=== PATIENT | female | born 1945 | race Caucasian/White ===

== ENCOUNTER 2018-10-08 09:15 | Outpatient (CLI) | payer MEDICARE, OTHER ==
[2018-10-08] VITALS (21 sets, daily range): BP systolic 103–128; BP diastolic 65–91
== END 2018-10-08 23:59 | disposition home or self-care (01) ==
LOC: CARD DIAG 09:15
PROVIDERS: ATTEND Internal Medicine Cardiovascular Disease
DX: R55 Syncope and collapse (principal)
CPT/HCPCS: 93660

== ENCOUNTER 2018-11-23 16:04 | Emergency (ER) | payer MEDICARE, OTHER ==
[~2018-11-23] VITALS: Ht 167.6 cm; Wt 94.1 kg
[2018-11-23 16:07] VITALS: BP 135/87
[2018-11-23] MEDS ORDERED: ondansetron 4mg rapidly disintigrating tab PO ONE (16:20)
[2018-11-23] MEDS ORDERED: diazepam 5mg tablet PO ONE (16:20)
[2018-11-23] MEDS ORDERED: DIAZ5TAB PO (17:07)
== END 2018-11-23 17:24 | disposition home or self-care (01) ==
LOC: ER 16:04
DX: R42 Dizziness and giddiness (principal); R53.1 Weakness; I48.91 Unspecified atrial fibrillation; Z88.0 Allergy status to penicillin; Z88.2 Allergy status to sulfonamides; Z79.899 Other long term (current) drug therapy; Z98.890 Other specified postprocedural states
CPT/HCPCS: 82948; 93005; 99283

== ENCOUNTER 2022-10-09 08:41 | Day surgery (SDC) | payer OTHER ==
[~2022-10-09] VITALS: Ht 165.1 cm; Wt 103.5 kg
[2022-10-09] VITALS (16 sets, daily range): BP systolic 114–169; BP diastolic 73–104
[~2022-10-09 08:41] MED LIST: DIAZ5TAB PO
[2022-10-09] MEDS ORDERED: LORazepam 0.5 MG tablet PO ONE (09:20)
[2022-10-09] MEDS ORDERED: morphine 10mg/ml inj. IV ONE (09:20)
[2022-10-09] MEDS ORDERED: diphenhydrAMINE 25mg capsule PO ONE (09:20)
[2022-10-09] MEDS ORDERED: MIDAZolam 1mg/ml 10ml vial IV ONE (09:20)
[2022-10-09] MEDS ORDERED: amiodarone 150mg/dext, iso-os 100 ML IV ONE (09:20)
[2022-10-09] MEDS ORDERED: atropine 0.1mg/ml 10ml syringe IV ONE (09:20)
[2022-10-09] MEDS ORDERED: normal saline 1000ml 1,000 ML IV SCH (09:20)
[2022-10-09] MEDS ORDERED: CARV25TA PO (09:45)
[2022-10-09] MEDS ORDERED: IRBE1TAB33 PO (09:45)
[2022-10-09] MEDS ORDERED: POTA8TAB69 PO (09:45)
[2022-10-09] MEDS ORDERED: FURO40TA4 PO (09:45)
[2022-10-09] MEDS ORDERED: SIMV-42 PO (09:45)
[2022-10-09 09:49] LABS: BASOPHILS % (AUTO) 0.4 % (0-1); EOSINOPHILS # (AUTO) 0.1 X10'3 (0-0.9); EOSINOPHILS % (AUTO) 2.2 % (0-6); HEMATOCRIT 38.2 % (35.0-45.0); HEMOGLOBIN 11.9 g/dl (12.0-16.0); LYMPHOCYTES # (AUTO) 1.4 X10'3 (1.1-4.8); LYMPHOCYTES % (AUTO) 21.4 % (21-51); MEAN CORPUSCULAR HEMOGLOBIN 27.8 PG (27.0-31.0); MEAN CORPUSCULAR HGB CONC 31.1 g/dL (33.0-36.5); MEAN CORPUSCULAR VOLUME 89.2 FL (78-98); MEAN PLATELET VOLUME 7.7 FL (7.4-10.4); MONOCYTES # (AUTO) 0.4 X10'3 (0-0.9); MONOCYTES % (AUTO) 6.4 % (2-12); NEUTROPHILS # (AUTO) 4.4 X10'3 (1.8-7.7); NEUTROPHILS % (AUTO) 69.6 % (42-75); PLATELET COUNT 292 X10'3 (140-440); RED BLOOD COUNT 4.29 X10'6 (4.20-5.60); RED CELL DISTRIBUTION WIDTH 16.3 % (11.5-14.5); WHITE BLOOD COUNT 6.3 X10'3 (4.5-11.0)
[2022-10-09] MEDS ORDERED: CHOL100017 PO (09:50)
[2022-10-09] MEDS ORDERED: METF-900 PO (09:50)
[2022-10-09 09:59] LABS: ALBUMIN 3.9 G/DL (3.4-5.0); ANION GAP 6 (8-16); BLOOD UREA NITROGEN 20 MG/DL (7-18); BUN/CREATININE RATIO 27.8 (6.6-38.0); CALCIUM 10.2 MG/DL (8.5-10.1); CHLORIDE 103 MMOL/L (99-107); CREATININE 0.72 MG/DL (0.40-0.90); GLUCOSE 110 MG/DL (70-104); POTASSIUM 4.1 MMOL/L (3.5-5.1); SODIUM 137 MMOL/L (135-145); TOTAL CARBON DIOXIDE 27.8 MMOL/L (24-32); eGFR 79 ML/MIN
[2022-10-09] MEDS ORDERED: TRAM50TA2 PO (10:00)
[2022-10-09] MEDS ORDERED: Co Q 10 PO (10:00)
[2022-10-09] MEDS ORDERED: FLEC100T2 PO (10:00)
[2022-10-09] MEDS ORDERED: A/C/1TAB3 (10:00)
[2022-10-09] MEDS ORDERED: HYDR-3964 PO (10:00)
[2022-10-09] MEDS ORDERED: APIX5TAB3 PO (10:00)
[2022-10-09 10:02] LABS: APTT 31 SECONDS (22-32)
[2022-10-09] MEDS ORDERED: AMLO10TA PO (10:12)
== END 2022-10-09 14:20 | disposition home or self-care (01) ==
LOC: SSTAY O 08:41
PROVIDERS: ATTEND Internal Medicine Cardiovascular Disease
DX: I48.19 Other persistent atrial fibrillation (principal); I48.92 Unspecified atrial flutter; E78.5 Hyperlipidemia, unspecified; I10 Essential (primary) hypertension; K21.9 Gastro-esophageal reflux disease without esophagitis; G47.33 Obstructive sleep apnea (adult) (pediatric); E66.3 Overweight; Z68.32 Body mass index [BMI] 32.0-32.9, adult; I47.1 Supraventricular tachycardia; E13.9 Other specified diabetes mellitus without complications; Z79.01 Long term (current) use of anticoagulants; Z79.899 Other long term (current) drug therapy; Z79.82 Long term (current) use of aspirin; Z90.710 Acquired absence of both cervix and uterus; Z98.890 Other specified postprocedural states; Z96.653 Presence of artificial knee joint, bilateral; Z88.2 Allergy status to sulfonamides; Z88.0 Allergy status to penicillin; Z91.09 Other allergy status, other than to drugs and biological substances; Z82.49 Family history of ischemic heart disease and other diseases of the circulatory system; Z82.61 Family history of arthritis
CPT/HCPCS: 36415; 80048; 82948; 85025; 85610; 85730; 92960; 93005; J2250; J2274; J7030; A4620